=== PATIENT | female | born 1980 | race Caucasian/White ===

== ENCOUNTER 2017-08-29 08:45 | Emergency (ER) | payer BC, OTHER | END 2017-08-29 10:53 | disposition home or self-care (01) | LOC: M ED 08:45 | DX: M54.2 Cervicalgia (principal); M54.10 Radiculopathy, site unspecified; M62.838 Other muscle spasm; Z91.041 Radiographic dye allergy status; Z88.8 Allergy status to other drugs, medicaments and biological substances; Z88.1 Allergy status to other antibiotic agents | CPT/HCPCS: 72052 ==

== ENCOUNTER → 2017-12-11 | Outpatient (CLI) | payer BC | LOC: M WHC 14:02 | DX: D25.9 Leiomyoma of uterus, unspecified (principal); N83.201 Unspecified ovarian cyst, right side; N92.6 Irregular menstruation, unspecified | CPT/HCPCS: 76830 ==

== ENCOUNTER → 2018-01-17 | Outpatient (CLI) | payer BC | LOC: M WHC 08:17 | DX: N83.201 Unspecified ovarian cyst, right side (principal); D25.9 Leiomyoma of uterus, unspecified | CPT/HCPCS: 76830 ==

== ENCOUNTER → 2018-04-16 | Outpatient (REF) | payer OTHER, BC ==
[2018-04-19 14:57] LABS: HPV HYBRID CAPTURE II Negative (Negative)
== END ==
LOC: M SFHCWAGY 15:30
DX: Z12.4 Encounter for screening for malignant neoplasm of cervix (principal)

== ENCOUNTER → 2018-11-12 | Outpatient (CLI) | payer BC ==
[~2018-11-12] MED LIST: MAG400TA; MULT1TAB18 PO; NAPR-50 PO; ROBA500T PO; VITA200016 PO; ZYRT10CA PO
--- NOTE | 2018-11-13 05:25 | REP ---
Clinical: Pelvic pain. Comparison: 01/17/2018 . Technique: Transabdominal pelvic ultrasound followed by transvaginal examination for better evaluation of the endometrium and adnexa with color Doppler evaluation of the ovaries. Findings: Bladder is unremarkable and measures 11.3 x 9.6 x 7.8 cm . Anteverted uterus measures 7.7 x 3.1 x 4.6 cm and includes left posterior lower uterine segment fibroid measuring 2.2 cm maximal diameter along with small Nabothian cyst. The endometrial complex measures 7.9 mm thickness. Bilateral ovaries are normal in appearance and vascularity without evidence for torsion. Right ovary measures 2.7 x 1.8 x 2.6 cm ; R I = 0.54 . Left ovary measures 2.8 x 1.8 x 2.4 cm ; R I = 0.46 . No pelvic fluid or adnexal mass lesion . Impression: 1. 2.2 cm lower uterine segment fibroid. 2. Normal ovaries without torsion.
== END ==
LOC: M WHC 08:13
PROVIDERS: ATTEND Nurse Practitioner Women's Health
DX: D25.9 Leiomyoma of uterus, unspecified (principal); Z87.42 Personal history of other diseases of the female genital tract

== ENCOUNTER → 2019-05-15 | Outpatient (REF) | payer OTHER, BC ==
[~2019-05-15] MED LIST changes: -NAPR-50 PO; +NAPR-837 PO
== END ==
LOC: M SFHCWAGY 15:44
PROVIDERS: ATTEND Nurse Practitioner Family
DX: Z12.4 Encounter for screening for malignant neoplasm of cervix (principal)

== ENCOUNTER → 2020-05-18 | Outpatient (REF) | payer OTHER, BC | LOC: M SFHCWAGY 17:41 | PROVIDERS: ATTEND Nurse Practitioner Women's Health | DX: Z12.4 Encounter for screening for malignant neoplasm of cervix (principal) | CPT/HCPCS: 87624; G0123 ==

== ENCOUNTER → 2020-11-29 | Outpatient (CLI) | payer BC ==
[~2020-11-29] MED LIST changes: -MAG400TA; +MAGN400T35
--- NOTE | 2020-12-01 15:03 | REP ---
INDICATION: LOW BACK PAIN. COMPARISON: None. TECHNIQUE: Plain film study of lumbar spine includes AP lateral and oblique images. FINDINGS: No evidence of fracture or malalignment. Vertebral heights and disc heights appear maintained. No evidence of significant degenerative change. There may be a transitional anatomy with a partially sacralized terminal lumbar vertebrae. Oblique views are without evidence of a limiting foraminal stenosis. IMPRESSION: No acute findings. No fracture or malalignment. Question of transitional anatomy with partially sacralized terminal lumbar vertebrae. This is typically an incidental finding. If symptoms persist, MRI may be informative. <Electronically signed by Yan Emanuel > 12/01/20 [id number]
== END ==
LOC: M WUC 14:33
PROVIDERS: ATTEND Internal Medicine
DX: M54.5 Low back pain (principal)

== ENCOUNTER → 2021-01-13 | Outpatient (CLI) | payer BC ==
--- NOTE | 2021-01-13 09:19 | REP ---
INDICATION: N94.10 DYSPAREUNIA/HX UTERINE FIBROID COMPARISON: 11/12/2018 TECHNIQUE: Transabdominal pelvic ultrasound followed by transvaginal examination for better evaluation of the endometrium and adnexa with color Doppler evaluation of the ovaries. FINDINGS: Bladder is unremarkable and measures 9.1 x 7.2 x 8.8 cm. Anteverted heterogeneous uterus measures 8.5 x 3.4 x 5.9 cm. The endometrial complex measures 2.7 mm thickness. Complex degenerating posterior intramural/submucosal fibroid measures 2.0 x 1.8 x 2.0 cm. Bilateral ovaries are normal in appearance and vascularity without evidence for torsion. Right ovary measures 2.6 x 1.6 x 2.4 cm; R I = 0.62. Left ovary measures 3.1 x 1.9 x 2.7 cm and includes 2.2 cm complex presumed degenerating physiologic cyst/follicle; R I = 0.57. No pelvic fluid or adnexal mass lesion IMPRESSION: Stable uterine fibroid <Electronically signed by Harshal Holloway > 01/13/21 [id number]
== END ==
LOC: M WHC 07:37
PROVIDERS: ATTEND Nurse Practitioner Women's Health
DX: N94.10 Unspecified dyspareunia (principal); Z86.018 Personal history of other benign neoplasm

== ENCOUNTER → 2021-03-11 | Outpatient (REF) | payer BC | LOC: M LAB REF 12:27 | PROVIDERS: ATTEND Internal Medicine | DX: D51.9 Vitamin B12 deficiency anemia, unspecified (principal) ==

== ENCOUNTER → 2021-05-24 | Outpatient (REF) | payer OTHER | LOC: M SFHCWAGY 17:41 | PROVIDERS: ATTEND Nurse Practitioner Women's Health | DX: Z12.4 Encounter for screening for malignant neoplasm of cervix (principal) ==

== ENCOUNTER → 2021-11-15 | Outpatient (REF) | payer BC, OTHER ==
[2021-11-17 00:07] LABS: CYCLIC CITRULLINATED PEPTIDE 10 units (0-19); Lyme Disease IgG/IgM Antibodie <0.91 ISR (0.00-0.90); Lyme Disease IgM Ab Quantitati <0.80 index (0.00-0.79)
== END ==
LOC: M LAB REF 12:49
PROVIDERS: ATTEND Internal Medicine
DX: M25.50 Pain in unspecified joint (principal)

== ENCOUNTER 2021-11-24 17:40 | Emergency (ER) | payer BC, OTHER ==
[~2021-11-24] VITALS: Ht 167.6 cm; Wt 82.7 kg
[2021-11-24] MEDS ORDERED: BUSP5TA (18:22)
[2021-11-24] MEDS ORDERED: LEVOTAB10 (18:22)
[2021-11-24] MEDS ORDERED: ANAS0.12 (18:22)
[2021-11-24] MEDS ORDERED: CEFD300C41 (18:22)
[2021-11-24 22:40] LABS: BASO % 0.4 % (0.0-1.0); EOS # 0.2 10^3/uL (0.0-0.5); EOS % 1.4 % (0.0-3.0); HEMATOCRIT 39.3 % (36.0-47.0); LYMPH # 4.1 10^3/uL (1.5-5.0); MEAN CORPUSCULAR HEMOGLOBIN 30.4 pg (27.0-33.0); MEAN CORPUSCULAR HGB CONC 33.1 g/dl (32.0-36.5); MEAN CORPUSCULAR VOLUME 91.8 fl (80.0-96.0); MONO # 0.6 10^3/uL (0.0-0.8); MONO % 5.7 % (2.0-8.0); NEUTROPHILS # 5.8 10^3/uL (1.5-8.5); NEUTROPHILS % 54.3 % (36.0-66.0); PLATELET COUNT, AUTOMATED 317 10^3/uL (150-450); RED BLOOD COUNT 4.28 10^6/uL (4.00-5.40); WHITE BLOOD COUNT 10.7 10^3/uL (4.0-10.0)
[2021-11-24 23:01] LABS: ERYTHROCYTE SEDIMENTATION RATE 2 mm/hr (0-20)
[2021-11-24 23:18] VITALS: BP 129/72
== END 2021-11-25 00:22 | disposition home or self-care (01) ==
LOC: M ED 17:40
DX: M51.26 Other intervertebral disc displacement, lumbar region (principal); K62.5 Hemorrhage of anus and rectum; K58.1 Irritable bowel syndrome with constipation; Z79.899 Other long term (current) drug therapy; Z91.041 Radiographic dye allergy status; Z88.1 Allergy status to other antibiotic agents; Z88.8 Allergy status to other drugs, medicaments and biological substances; Z98.890 Other specified postprocedural states; Z82.49 Family history of ischemic heart disease and other diseases of the circulatory system; Z83.3 Family history of diabetes mellitus

== ENCOUNTER → 2021-11-28 | Outpatient (REF) | payer BC, OTHER ==
[~2021-11-28] MED LIST changes: +ANAS0.12; +BUSP5TA; +CEFD300C41; +LEVOTAB10
== END ==
LOC: M LAB REF 16:45
PROVIDERS: ATTEND Internal Medicine
DX: K62.5 Hemorrhage of anus and rectum (principal)

== ENCOUNTER → 2022-04-23 | Outpatient (CLI) | payer BC, OTHER ==
[~2022-04-23] MED LIST changes: -BUSP5TA; +BUSP5TA PO; +D200CAP3 PO; -LEVOTAB10; +LEVOTAB10 PO; +LINZ145C PO; -MAGN400T35; +MAGN400T35 PO; +ONETAB35 PO; +PROBCAP14 PO; +[UNRECOGNIZED DRUG - CODE] PO
== END ==
LOC: M LABSMTC 10:14
PROVIDERS: ATTEND Anesthesiology
DX: Z01.812 Encounter for preprocedural laboratory examination (principal)

== ENCOUNTER 2022-04-26 11:26 | Day surgery (SDC) | payer BC, OTHER ==
[~2022-04-26] VITALS: Ht 167.6 cm; Wt 78.4 kg
[~2022-04-26 11:26] MED LIST changes: +NS 1,000 ML IV ONE
[2022-04-26] MEDS ORDERED: propofoL 200 MG/20 ML VIAL As Ordered ONE (12:17)
[2022-04-26] MEDS ORDERED: LIDOCAINE 2% 100MG/5ML SDV (FOR ANES.) As Ordered ONE (12:17)
[2022-04-26] MEDS ORDERED: fentaNYL 100 MCG/2 ML INJECTION As Ordered ONE (12:39)
[2022-04-26 14:00] VITALS: BP 115/62
== END 2022-04-26 14:10 | disposition home or self-care (01) ==
LOC: M OPP 11:26
PROVIDERS: ATTEND Internal Medicine Gastroenterology
DX: K62.5 Hemorrhage of anus and rectum (principal); K64.0 First degree hemorrhoids; K29.70 Gastritis, unspecified, without bleeding; K44.9 Diaphragmatic hernia without obstruction or gangrene; K22.89 Other specified disease of esophagus; F41.9 Anxiety disorder, unspecified; Z79.899 Other long term (current) drug therapy; Z88.1 Allergy status to other antibiotic agents; Z88.8 Allergy status to other drugs, medicaments and biological substances; Z91.041 Radiographic dye allergy status
CPT/HCPCS: 43239; 45378; 88305; J3010

== ENCOUNTER → 2022-05-29 | Outpatient (REF) | payer BC, OTHER ==
[~2022-05-29] MED LIST changes: -NS 1,000 ML IV ONE
== END ==
LOC: M SFHCWAGY 12:51
PROVIDERS: ATTEND Obstetrics & Gynecology
DX: Z01.419 Encounter for gynecological examination (general) (routine) without abnormal findings (principal); Z12.4 Encounter for screening for malignant neoplasm of cervix

== ENCOUNTER → 2022-06-13 | Outpatient (CLI) | payer BC, OTHER ==
[2022-06-13 15:45] LABS: APPEARANCE, URINE MANUAL CLEAR (CLEAR); COLOR, URINE MANUAL YELLOW (YELLOW); PH,URINE MAN 7.5 UNITS (5.0 - 7.0)
[2022-06-13 15:46] LABS: BILIRUBIN, URINE MANUAL NEGATIVE (NEGATIVE); BLOOD URINE MANUAL NEGATIVE (NEGATIVE); GLUCOSE, URINE (UA) MANUAL NEGATIVE (NEGATIVE); KETONE, URINE MANUAL NEGATIVE (NEGATIVE); LEUKOCYTE ESTERASE, URINE MAN POSITIVE (NEGATIVE); NITRITE, URINE MANUAL NEGATIVE (NEGATIVE); PROTEIN, URINE MANUAL NEGATIVE (NEGATIVE); SPECIFIC GRAVITY,URINE MANUAL 1.003 (1.002-1.035); UROBILINOGEN, URINE MANUAL NORMAL (NORMAL)
[2022-06-13 16:16] LABS: BACTERIA, URINE MOD AMOUNT; HYALINE CAST, URINE NONE SEEN /lpf (0-1); MUCUS, URINE SMALL AMOUNT (NEGATIVE); RBC, URINE 0-1 /hpf (0-3); SQUAMOUS EPITHELIAL CELL URINE SMALL AMOUNT /hpf (SMALL AMT)
== END ==
LOC: M PLALAB 12:29
PROVIDERS: ATTEND Advanced Practice Midwife
DX: R30.0 Dysuria (principal)

== ENCOUNTER → 2022-07-28 | Outpatient (REF) | payer BC, OTHER ==
[2022-07-29 08:46] LABS: APPEARANCE, URINE MANUAL HAZY (CLEAR); BILIRUBIN, URINE MANUAL NEGATIVE (NEGATIVE); BLOOD URINE MANUAL NEGATIVE (NEGATIVE); COLOR, URINE MANUAL YELLOW (YELLOW); GLUCOSE, URINE (UA) MANUAL NEGATIVE (NEGATIVE); KETONE, URINE MANUAL NEGATIVE (NEGATIVE); LEUKOCYTE ESTERASE, URINE MAN POSITIVE (NEGATIVE); NITRITE, URINE MANUAL POSITIVE (NEGATIVE); PROTEIN, URINE MANUAL NEGATIVE (NEGATIVE); UROBILINOGEN, URINE MANUAL NORMAL (NORMAL)
[2022-07-29 09:04] LABS: BACTERIA, URINE LARGE AMOUNT; HYALINE CAST, URINE NONE SEEN /lpf (0-1); SQUAMOUS EPITHELIAL CELL URINE SMALL AMOUNT /hpf (SMALL AMT); WBC, URINE 40-50 /hpf (0-3)
== END ==
LOC: M LAB REF 17:10
PROVIDERS: ATTEND Physician Assistant Medical
DX: N39.0 Urinary tract infection, site not specified (principal)

== ENCOUNTER → 2022-08-11 | Outpatient (REF) | payer OTHER, BC | LOC: M PLALAB 08:48 | PROVIDERS: ATTEND Obstetrics & Gynecology | DX: R87.615 Unsatisfactory cytologic smear of cervix (principal); Z12.4 Encounter for screening for malignant neoplasm of cervix ==

== ENCOUNTER → 2022-09-01 | Outpatient (REF) | payer OTHER, BC ==
[2022-09-01 14:09] LABS: PERCENT SATURATION 26.5 % (13.2-45.0)
[2022-09-01 14:10] LABS: FERRITIN 43.9 NG/ML (7.3-270.7)
== END ==
LOC: M LAB REF 11:56
PROVIDERS: ATTEND Internal Medicine
DX: K62.5 Hemorrhage of anus and rectum (principal)

== ENCOUNTER → 2022-09-28 | Outpatient (CLI) | payer BC, OTHER ==
[~2022-09-28] MED LIST changes: +PROHANCE 279.3MG/ML 15ML VIAL As Ordered ONE
== END ==
LOC: M RAD 10:28
PROVIDERS: ATTEND Internal Medicine
DX: Z15.01 Genetic susceptibility to malignant neoplasm of breast (principal)

== ENCOUNTER → 2023-03-06 | Outpatient (CLI) | payer BC, OTHER ==
[~2023-03-06] MED LIST changes: -PROHANCE 279.3MG/ML 15ML VIAL As Ordered ONE
== END ==
LOC: M WUC 09:07
PROVIDERS: ATTEND Internal Medicine
DX: M25.50 Pain in unspecified joint (principal)

== ENCOUNTER → 2023-06-06 | Outpatient (REF) | payer BC, OTHER ==
[~2023-06-06] MED LIST changes: -CEFD300C41; +CEFD300C42
[2023-06-06 13:56] LABS: APPEARANCE, URINE HAZY (CLEAR); BACTERIA, URINE AUTO NEGATIVE (NEGATIVE); BILIRUBIN, URINE AUTO NEGATIVE (NEGATIVE); BLOOD, URINE BLOOD NEGATIVE (NEGATIVE); COLOR, URINE YELLOW (YELLOW); GLUCOSE, URINE (UA) AUTO NEGATIVE (NEGATIVE); KETONE, URINE AUTO NEGATIVE (NEGATIVE); LEUKOCYTE ESTERASE, URINE AUTO TRACE (NEGATIVE); MUCUS, URINE SMALL (NEGATIVE); NITRITE, URINE AUTO NEGATIVE (NEGATIVE); PROTEIN, URINE AUTO NEGATIVE (NEGATIVE); RBC, URINE AUTO 1 /HPF (0-3); SPECIFIC GRAVITY URINE AUTO 1.004 (1.002-1.035); SQUAMOUS EPITHELIAL CELL UR AU 2 /HPF (0-6); UROBILINOGEN, URINE AUTO 0.2 mg/dL (0.0-2.0); WBC, URINE AUTO 9 /HPF (0-3)
== END ==
LOC: M SFHCWAGY 13:16
PROVIDERS: ATTEND Obstetrics & Gynecology
DX: Z01.419 Encounter for gynecological examination (general) (routine) without abnormal findings (principal); R82.90 Unspecified abnormal findings in urine

== ENCOUNTER → 2023-10-04 | Outpatient (REF) | payer BC, OTHER ==
[~2023-10-04] MED LIST changes: +CEFD1CAP9; -CEFD300C42
[2023-10-04 14:08] LABS: VITAMIN B12 LEVEL 758 PG/ML (211-911)
[2023-10-04 14:10] LABS: FOLATE > 24.0 NG/ML (>5.4)
== END ==
LOC: M LAB REF 12:03
PROVIDERS: ATTEND Nurse Practitioner Family
DX: R53.83 Other fatigue (principal); N39.0 Urinary tract infection, site not specified

== ENCOUNTER → 2023-11-09 | Outpatient (CLI) | payer BC | LOC: M RAD 12:03 | PROVIDERS: ATTEND Internal Medicine | DX: D25.9 Leiomyoma of uterus, unspecified (principal); R10.2 Pelvic and perineal pain ==

== ENCOUNTER → 2024-09-19 | Outpatient (CLI) | payer BC | LOC: M RAD 09:56 | PROVIDERS: ATTEND Internal Medicine | DX: R22.32 Localized swelling, mass and lump, left upper limb (principal) ==

== ENCOUNTER 2025-01-02 07:44 | Day surgery (SDC) | payer BC ==
[~2025-01-02] VITALS: Ht 167.6 cm; Wt 88.7 kg
[~2025-01-02 07:44] MED LIST changes: +MULT1TAB16 PO; +OMEP-173 PO; +VITA500C22 PO
[2025-01-02] MEDS ORDERED: propofoL 200 MG/20 ML VIAL As Ordered ONE (08:33)
[2025-01-02] MEDS ORDERED: LIDOCAINE 2% 100MG/5ML SDV (FOR ANES.) As Ordered ONE (08:33)
[2025-01-02] MEDS ORDERED: fentaNYL 100 MCG/2 ML INJECTION As Ordered ONE (08:33)
[2025-01-02 09:08] VITALS: BP 123/73; O2SAT 97
== END 2025-01-02 10:08 | disposition home or self-care (01) ==
LOC: M OPP 07:44
PROVIDERS: ATTEND Surgery
DX: K21.9 Gastro-esophageal reflux disease without esophagitis (principal); K29.50 Unspecified chronic gastritis without bleeding; K58.9 Irritable bowel syndrome, unspecified; Z79.899 Other long term (current) drug therapy; Z90.89 Acquired absence of other organs; Z88.8 Allergy status to other drugs, medicaments and biological substances; Z88.1 Allergy status to other antibiotic agents; Z91.041 Radiographic dye allergy status
CPT/HCPCS: 43239; 88305; J3010

== ENCOUNTER → 2025-03-09 | Outpatient (REF) | payer BC | LOC: M LAB REF 17:19 | PROVIDERS: ATTEND Internal Medicine | DX: R63.5 Abnormal weight gain (principal) ==

== ENCOUNTER → 2025-04-20 | Outpatient (REF) | payer BC ==
[2025-04-20 21:53] LABS: APPEARANCE, URINE HAZY (CLEAR); BACTERIA, URINE AUTO 1+ (NEGATIVE); BILIRUBIN, URINE AUTO NEGATIVE (NEGATIVE); BLOOD, URINE BLOOD NEGATIVE (NEGATIVE); GLUCOSE, URINE (UA) AUTO NEGATIVE (NEGATIVE); KETONE, URINE AUTO NEGATIVE (NEGATIVE); LEUKOCYTE ESTERASE, URINE AUTO NEGATIVE (NEGATIVE); NITRITE, URINE AUTO POSITIVE (NEGATIVE); PROTEIN, URINE AUTO NEGATIVE (NEGATIVE); RBC, URINE AUTO 0 /HPF (0-3); SPECIFIC GRAVITY URINE AUTO 1.005 (1.002-1.035); SQUAMOUS EPITHELIAL CELL UR AU 2 /HPF (0-6); UROBILINOGEN, URINE AUTO 0.2 mg/dL (0.0-2.0); WBC, URINE AUTO 0 /HPF (0-3)
== END ==
LOC: M LAB REF 21:31
PROVIDERS: ATTEND Physician Assistant Medical
DX: N39.0 Urinary tract infection, site not specified (principal)